=== PATIENT | female | born 1995 | race Two or more races ===

== ENCOUNTER 2023-08-06 01:17 | Emergency (ER) | payer OTHER ==
[~2023-08-06] VITALS: Ht 162.6 cm; Wt 61.2 kg
[2023-08-06] MEDS ORDERED: ALDACTONE50 MG PO (01:26)
[2023-08-06 02:11] LABS: HEMATOCRIT 34.8 % (36.0-45.00); HEMOGLOBIN 12.2 g/dL (12.0-15.00); MEAN CELL VOLUME 80.8 fL (80.00-100.00); MEAN CORPUSCULAR HEMOGLOBIN 28.3 pg (27.00-32.0); PLATELET COUNT 281 K/uL (150-450); RED BLOOD COUNT 4.31 M/uL (4.00-6.00); RED CELL DISTRIBUTION WIDTH 14.3 % (11.5-14.5)
== END 2023-08-06 04:24 | disposition home or self-care (01) ==
LOC: ER 01:17
DX: R10.13 Epigastric pain (principal); R10.9 Unspecified abdominal pain